=== PATIENT | female | born 1985 | race Caucasian/White ===

== ENCOUNTER 2017-11-17 06:50 | Inpatient (IN) | payer OTHER ==
[~2017-11-17] VITALS: Ht 167.6 cm; Wt 108.9 kg
[~2017-11-17 06:50] MED LIST: INSULIN PUMP MC; PRENATAL TABLE1 EAC3 PO; SYNTHROID25 MCG PO; TUMS500 MG PO; TYLENOL EXTRA500 MG PO; VITAMIN D31000 UNIT PO
[2017-11-17 07:34] VITALS: BP 127/84
[2017-11-17 08:21] VITALS: BP 126/83
[2017-11-17 09:25] LABS: AMPHETAMINE NEGATIVE (500 ng/mL); BARBITURATES NEGATIVE (200 ng/mL); BENZODIAZEPINES NEGATIVE (150 ng/mL); BUPRENORPHINE NEGATIVE (10 ng/mL); COCAINE NEGATIVE (150 ng/mL); METHADONE NEGATIVE (200 ng/mL); METHAMPHETAMINE NEGATIVE (500 ng/mL); OPIATES (MORPHINE) NEGATIVE (100 ng/mL); OXYCODONE NEGATIVE (100 ng/mL); PHENCYCLIDINE NEGATIVE (25 ng/mL); PROPOXYPHENE NEGATIVE (300 ng/mL); THC CANNABINOIDS NEGATIVE (50 ng/mL); TRICYCLIC ANTIDEPRESSANTS NEGATIVE (300 ng/mL)
[2017-11-17] MEDS ORDERED: ENDOCET 5-3251 EACH PO (11:29)
[2017-11-17] MEDS ORDERED: IBUPROFEN800 MG PO (11:29)
[2017-11-17 13:12] VITALS: BP 125/75
[2017-11-17 15:28] VITALS: BP 122/74
[2017-11-17 22:20] VITALS: BP 122/71
[2017-11-18 06:16] VITALS: BP 110/67
[2017-11-18 06:40] LABS: BASOPHIL (%) 0.3 % (0-1); BASOPHIL COUNT 0.1 K/uL (0-0.1); EOSINOPHIL (%) 1.1 % (0-5); EOSINOPHIL COUNT 0.2 K/uL (0-0.3); HEMATOCRIT 26.4 % (36.0-46.0); IMMATURE GRANULOCYTE (%) 1.2 % (0.0-0.7); LYMPHOCYTE (%) 18.4 % (15-42); LYMPHOCYTE COUNT 2.8 K/uL (1.0-2.8); MCH 29.1 PG (29.0-34.0); MCHC 33.3 G/DL (30.0-36.0); MCV 87.4 FL (83-99); MONOCYTE (%) 6.4 % (3-12); NEUTROPHIL (%) 72.6 % (45-76); PLATELET COUNT 274 K/uL (156-360); RBC DIS.WIDTH-CV 13.9 % (11.8-14.6); WHITE BLOOD COUNT 15.1 K/uL (4.1-10.2)
[2017-11-18 06:48] LABS: HEMOGLOBIN 8.8 G/DL (11.9-15.5); RED BLOOD COUNT 3.02 M/uL (3.80-5.20)
[2017-11-18 07:54] VITALS: BP 112/67
[2017-11-18 19:10] VITALS: BP 129/79
[2017-11-19 03:00] VITALS: BP 139/86
[2017-11-19 04:08] VITALS: BP 133/82
[2017-11-19 07:25] VITALS: BP 120/75
[2017-11-19 15:24] VITALS: BP 140/88
[2017-11-19 22:59] VITALS: BP 142/81
[2017-11-20 07:33] VITALS: BP 131/87
[2017-11-20 15:21] VITALS: BP 136/86
== END 2017-11-20 16:40 | disposition home or self-care (01) | DRG 765 ==
LOC: 2WEST 06:50 → 2SOUTH 09:45 → 2WEST 11-20 16:40
PROVIDERS: Obstetrics & Gynecology Obstetrics
PROC: 10D00Z1 Extraction of Products of Conception, Low, Open Approach (ICD-10-PCS; principal; 2017-11-17)
DX: O32.1XX0 Maternal care for breech presentation, not applicable or unspecified (principal); O99.284 Endocrine, nutritional and metabolic diseases complicating childbirth; E06.3 Autoimmune thyroiditis; O24.02 Pre-existing type 1 diabetes mellitus, in childbirth; E10.9 Type 1 diabetes mellitus without complications; Z79.4 Long term (current) use of insulin; Z96.41 Presence of insulin pump (external) (internal); O99.214 Obesity complicating childbirth; E66.9 Obesity, unspecified; Z68.38 Body mass index [BMI] 38.0-38.9, adult; O36.63X0 Maternal care for excessive fetal growth, third trimester, not applicable or unspecified; O34.13 Maternal care for benign tumor of corpus uteri, third trimester; D25.0 Submucous leiomyoma of uterus; Z3A.39 39 weeks gestation of pregnancy; Z37.0 Single live birth; Z88.0 Allergy status to penicillin
CPT/HCPCS: 36415; 80048; 82948; 85025; 86850; 86900; 86901; 93005; J0690; J1885; J2274; J2590; J3010; J7120; S0020